=== PATIENT | male | born 1965 | race Caucasian/White ===

== ENCOUNTER 2018-09-24 10:34 | Day surgery (SDC) | payer BC ==
[~2018-09-24] VITALS: Ht 167.6 cm; Wt 110.7 kg
[~2018-09-24 10:34] MED LIST: CHLO125TA PO; FENO145T13 PO; FISH7.5C PO; LOTR10CA PO; PRAV40TA2 PO
[2018-09-24] MEDS ORDERED: NS 1,000 ML IV ONE (11:15)
[2018-09-24] MEDS ORDERED: LIDOCAINE 2% INJ 100 MG/5 ML SDV (FOR ANES.) As Ordered ONE (11:50)
[2018-09-24] MEDS ORDERED: PROPOFOL 200 MG/20 ML VIAL As Ordered ONE (11:50)
--- NOTE | 2018-09-24 12:17 | ROOR ---
Patient Name: Josiah Martinez Procedure Date: 09/24/2018 11:51 AM Date of : 1965 Age: 52 Room: [facility] Gender: Male Note Status: Finalized Procedure: Colonoscopy Indications: Screening for colorectal malignant neoplasm Providers: Alan SORIA MD Referring MD: JOSIAH HUNTER MD Requesting Provider: Medicines: Monitored Anesthesia Care Complications: No immediate complications. Procedure: Pre-Anesthesia Assessment: - The heart rate, respiratory rate, oxygen saturations, blood pressure, adequacy of pulmonary ventilation, and response to care were monitored throughout the procedure. The Colonoscope was introduced through the anus and advanced to the cecum, identified by appendiceal orifice and ileocecal valve. The colonoscopy was performed without difficulty. The patient tolerated the procedure well. The quality of the bowel preparation was good. Findings: The perianal and digital rectal examinations were normal. Two sessile polyps were found in the sigmoid colon and splenic flexure. The polyps were 4 to 5 mm in size. These polyps were removed with a cold snare. Resection and retrieval were complete. Multiple small and large-mouthed diverticula were found in the sigmoid colon. The exam was otherwise without abnormality on direct and retroflexion views. Impression: - Two 4 to 5 mm polyps in the sigmoid colon and at the splenic flexure, removed with a cold snare. Resected and retrieved. - Moderate diverticulosis in the sigmoid colon. - The examination was otherwise normal on direct and retroflexion views. Recommendation: - Await pathology results. - Telephone endoscopist for pathology results in 2 weeks. - If the pathology report reveals adenomatous tissue, then repeat the colonoscopy for surveillance in 5 years. Alan Soria MD Alan SORIA MD 09/24/2018 12:17:08 PM This report has been signed electronically. Number of Addenda: 0 Note Initiated On: 09/24/2018 11:51 AM Estimated Blood Loss: Estimated blood loss: none.
[2018-09-24 12:40] VITALS: BP 157/94
== END 2018-09-24 12:57 | disposition home or self-care (01) ==
LOC: M OPP 10:34
PROVIDERS: ATTEND Internal Medicine Gastroenterology
DX: Z12.11 Encounter for screening for malignant neoplasm of colon (principal); K62.5 Hemorrhage of anus and rectum; K57.30 Diverticulosis of large intestine without perforation or abscess without bleeding; Z79.899 Other long term (current) drug therapy

== ENCOUNTER → 2022-04-04 | Outpatient (CLI) | payer BC ==
[~2022-04-04] MED LIST changes: -FENO145T13 PO; +FENO145T7 PO; +FISH10005 PO; -FISH7.5C PO
[2022-04-04 11:40] LABS: BLOOD UREA NITROGEN 18 MG/DL (7-18); CREATININE FOR GFR 0.85 MG/DL (0.70-1.30); GLOMERULAR FILTRATION RATE > 60.0 (>56)
== END ==
LOC: M PLALAB 08:45
PROVIDERS: ATTEND Orthopaedic Surgery
DX: M70.61 Trochanteric bursitis, right hip (principal)

== ENCOUNTER → 2022-05-23 | Outpatient (CLI) | payer BC ==
[2022-05-23 11:46] LABS: HEMOGLOBIN A1c 6.9 %
[2022-05-23 11:50] LABS: ALBUMIN 4.1 GM/DL (3.2-5.2); ALT/SGPT 33 U/L (12-78); BILIRUBIN,TOTAL 0.7 MG/DL (0.2-1.0); BLOOD UREA NITROGEN 20 MG/DL (7-18); CALCIUM LEVEL 9.2 MG/DL (8.5-10.1); CARBON DIOXIDE LEVEL 27 MEQ/L (21-32); CHLORIDE LEVEL 103 MEQ/L (98-107); CHOLESTEROL LEVEL 226 MG/DL (<200); CHOLESTEROL RISK RATIO 5.255 (<5); CREATININE FOR GFR 0.99 MG/DL (0.70-1.30); GLOMERULAR FILTRATION RATE > 60.0 (>56); GLUCOSE, FASTING 142 MG/DL (70-100); HDL CHOLESTEROL 43 MG/DL (>40); NON-HDL-C 183 MG/DL; SODIUM LEVEL 138 MEQ/L (136-145); TOTAL PROTEIN 7.2 GM/DL (6.4-8.2); TRIGLYCERIDES LEVEL 419 MG/DL (<150)
== END ==
LOC: M PLALAB 08:21
PROVIDERS: ATTEND Internal Medicine
DX: E78.2 Mixed hyperlipidemia (principal); R73.01 Impaired fasting glucose; I10 Essential (primary) hypertension

== ENCOUNTER → 2022-08-30 | Outpatient (CLI) | payer BC ==
[2022-08-30 10:50] LABS: ALBUMIN 4.1 G/DL (3.2-5.2); ALKALINE PHOSPHATASE 87 U/L (46-116); ALT/SGPT 23 U/L (7.0-40); AST/SGOT 19 U/L (<34); BILIRUBIN,TOTAL 0.7 MG/DL (0.3-1.2); BLOOD UREA NITROGEN 19 MG/DL (9-23); CALCIUM LEVEL 9.4 MG/DL (8.5-10.1); CARBON DIOXIDE LEVEL 25 MMOL/L (20-31); CHLORIDE LEVEL 104 MMOL/L (98-107); CHOLESTEROL LEVEL 195 MG/DL (<200); CHOLESTEROL RISK RATIO 4.45 (<5); CREATININE FOR GFR 0.84 MG/DL (0.70-1.30); GLOMERULAR FILTRATION RATE > 60.0 (>56); GLUCOSE, FASTING 144 MG/DL (60-100); HDL CHOLESTEROL 43.8 MG/DL (>40); NON-HDL-C 151 MG/DL; POTASSIUM SERUM 3.9 MMOL/L (3.5-5.1); SODIUM LEVEL 139 MMOL/L (136-145); TOTAL PROTEIN 6.8 G/DL (5.7-8.2); TRIGLYCERIDES LEVEL 301 MG/DL (<150)
== END ==
LOC: M PLALAB 08:08
PROVIDERS: ATTEND Internal Medicine
DX: E11.9 Type 2 diabetes mellitus without complications (principal)

== ENCOUNTER → 2022-11-27 | Outpatient (CLI) | payer BC ==
[2022-11-27 11:03] LABS: ALBUMIN 3.9 G/DL (3.2-5.2); ALKALINE PHOSPHATASE 92 U/L (46-116); ALT/SGPT 13 U/L (7.0-40); AST/SGOT 17 U/L (<34); BILIRUBIN,TOTAL 0.6 MG/DL (0.3-1.2); BLOOD UREA NITROGEN 26 MG/DL (9-23); CALCIUM LEVEL 9.1 MG/DL (8.5-10.1); CARBON DIOXIDE LEVEL 24 MMOL/L (20-31); CHLORIDE LEVEL 102 MMOL/L (98-107); CHOLESTEROL LEVEL 226 MG/DL (<200); CHOLESTEROL RISK RATIO 5.14 (<5); GLOMERULAR FILTRATION RATE > 60.0 (>56); GLUCOSE, FASTING 139 MG/DL (60-100); HDL CHOLESTEROL 43.9 MG/DL (>40); NON-HDL-C 182.1 MG/DL; POTASSIUM SERUM 4.3 MMOL/L (3.5-5.1); SODIUM LEVEL 135 MMOL/L (136-145); TOTAL PROTEIN 6.8 G/DL (5.7-8.2); TRIGLYCERIDES LEVEL 508 MG/DL (<150)
[2022-11-27 11:07] LABS: HEMOGLOBIN A1c 7.1 % (4.0-6.0)
== END ==
LOC: M PLALAB 08:16
PROVIDERS: ATTEND Internal Medicine
DX: E11.9 Type 2 diabetes mellitus without complications (principal)

== ENCOUNTER → 2023-03-01 | Outpatient (CLI) | payer BC ==
[2023-03-01 11:36] LABS: HEMOGLOBIN A1c 7.7 % (4.0-6.0)
[2023-03-01 11:46] LABS: ALBUMIN 4.1 G/DL (3.2-5.2); ALKALINE PHOSPHATASE 91 U/L (46-116); ALT/SGPT 24 U/L (7.0-40); AST/SGOT 16 U/L (<34); BILIRUBIN,TOTAL 0.8 MG/DL (0.3-1.2); BLOOD UREA NITROGEN 21 MG/DL (9-23); CALCIUM LEVEL 9.2 MG/DL (8.5-10.1); CARBON DIOXIDE LEVEL 23 MMOL/L (20-31); CHLORIDE LEVEL 103 MMOL/L (98-107); CHOLESTEROL LEVEL 218 MG/DL (<200); CREATININE FOR GFR 0.82 MG/DL (0.70-1.30); GLOMERULAR FILTRATION RATE > 60.0 (>56); GLUCOSE, FASTING 150 MG/DL (60-100); HDL CHOLESTEROL 40.3 MG/DL (>40); NON-HDL-C 177.7 MG/DL; POTASSIUM SERUM 3.8 MMOL/L (3.5-5.1); SODIUM LEVEL 137 MMOL/L (136-145); TOTAL PROTEIN 6.8 G/DL (5.7-8.2); TRIGLYCERIDES LEVEL 637 MG/DL (<150)
== END ==
LOC: M PLALAB 08:38
PROVIDERS: ATTEND Internal Medicine
DX: E11.9 Type 2 diabetes mellitus without complications (principal); E78.2 Mixed hyperlipidemia; I10 Essential (primary) hypertension

== ENCOUNTER → 2023-06-01 | Outpatient (CLI) | payer BC ==
[2023-06-01 11:02] LABS: ALKALINE PHOSPHATASE 74 U/L (46-116); ALT/SGPT 29 U/L (7.0-40); AST/SGOT 23 U/L (<34); BILIRUBIN,TOTAL 0.8 MG/DL (0.3-1.2); BLOOD UREA NITROGEN 18 MG/DL (9-23); CALCIUM LEVEL 9.3 MG/DL (8.5-10.1); CARBON DIOXIDE LEVEL 26 MMOL/L (20-31); CHLORIDE LEVEL 103 MMOL/L (98-107); CHOLESTEROL LEVEL 215 MG/DL (<200); CHOLESTEROL RISK RATIO 4.86 (<5); CREATININE FOR GFR 0.86 MG/DL (0.70-1.30); GLOMERULAR FILTRATION RATE > 60.0 (>56); GLUCOSE, FASTING 140 MG/DL (60-100); HDL CHOLESTEROL 44.2 MG/DL (>40); LDL CHOLESTEROL 104.2 MG/DL (<100); NON-HDL-C 170.8 MG/DL; POTASSIUM SERUM 3.6 MMOL/L (3.5-5.1); SODIUM LEVEL 140 MMOL/L (136-145); TOTAL PROTEIN 6.9 G/DL (5.7-8.2); TRIGLYCERIDES LEVEL 333 MG/DL (<150)
[2023-06-01 11:15] LABS: HEMOGLOBIN A1c 6.9 % (4.0-6.0)
== END ==
LOC: M PLALAB 08:24
PROVIDERS: ATTEND Internal Medicine
DX: E11.9 Type 2 diabetes mellitus without complications (principal)

== ENCOUNTER → 2023-09-03 | Outpatient (CLI) | payer BC ==
[2023-09-03 14:04] LABS: ALBUMIN 4.2 G/DL (3.2-5.2); ALKALINE PHOSPHATASE 73 U/L (46-116); ALT/SGPT 22 U/L (7.0-40); AST/SGOT 17 U/L (<34); BILIRUBIN,TOTAL 0.7 MG/DL (0.3-1.2); BLOOD UREA NITROGEN 23 MG/DL (9-23); CALCIUM LEVEL 9.3 MG/DL (8.5-10.1); CARBON DIOXIDE LEVEL 26 MMOL/L (20-31); CHLORIDE LEVEL 105 MMOL/L (98-107); CHOLESTEROL LEVEL 214 MG/DL (<200); CHOLESTEROL RISK RATIO 5.24 (<5); GLOMERULAR FILTRATION RATE > 60.0 (>56); GLUCOSE, FASTING 133 MG/DL (60-100); HDL CHOLESTEROL 40.8 MG/DL (>40); LDL CHOLESTEROL 113.2 MG/DL (<100); NON-HDL-C 173.2 MG/DL; POTASSIUM SERUM 3.7 MMOL/L (3.5-5.1); SODIUM LEVEL 137 MMOL/L (136-145); TRIGLYCERIDES LEVEL 300 MG/DL (<150)
[2023-09-03 14:06] LABS: HEMOGLOBIN A1c 6.7 % (4.0-6.0)
== END ==
LOC: M PLALAB 08:48
PROVIDERS: ATTEND Internal Medicine
DX: E11.9 Type 2 diabetes mellitus without complications (principal); E78.2 Mixed hyperlipidemia; I10 Essential (primary) hypertension

== ENCOUNTER → 2023-12-04 | Outpatient (CLI) | payer BC ==
[2023-12-04 11:03] LABS: ALBUMIN 4.1 G/DL (3.2-5.2); ALKALINE PHOSPHATASE 96 U/L (46-116); ALT/SGPT 28 U/L (7.0-40); AST/SGOT 23 U/L (<34); BILIRUBIN,TOTAL 0.8 MG/DL (0.3-1.2); BLOOD UREA NITROGEN 23 MG/DL (9-23); CALCIUM LEVEL 9.4 MG/DL (8.5-10.1); CARBON DIOXIDE LEVEL 24 MMOL/L (20-31); CHLORIDE LEVEL 101 MMOL/L (98-107); CHOLESTEROL LEVEL 212 MG/DL (<200); CREATININE FOR GFR 0.86 MG/DL (0.70-1.30); GLOMERULAR FILTRATION RATE > 60.0 (>56); GLUCOSE, FASTING 142 MG/DL (60-100); HDL CHOLESTEROL 40.7 MG/DL (>40); LDL CHOLESTEROL 93.3 MG/DL (<100); NON-HDL-C 171.3 MG/DL; POTASSIUM SERUM 3.8 MMOL/L (3.5-5.1); SODIUM LEVEL 135 MMOL/L (136-145); TOTAL PROTEIN 6.9 G/DL (5.7-8.2); TRIGLYCERIDES LEVEL 390 MG/DL (<150)
== END ==
LOC: M PLALAB 08:25
PROVIDERS: ATTEND Internal Medicine
DX: E11.9 Type 2 diabetes mellitus without complications (principal); E78.2 Mixed hyperlipidemia; I10 Essential (primary) hypertension

== ENCOUNTER → 2024-03-19 | Outpatient (CLI) | payer BC ==
[2024-03-19 10:17] LABS: ALBUMIN 3.9 G/DL (3.2-5.2); ALKALINE PHOSPHATASE 78 U/L (46-116); ALT/SGPT 24 U/L (7.0-40); AST/SGOT 16 U/L (<34); BILIRUBIN,TOTAL 0.9 MG/DL (0.3-1.2); BLOOD UREA NITROGEN 15 MG/DL (9-23); CALCIUM LEVEL 9.7 MG/DL (8.5-10.1); CARBON DIOXIDE LEVEL 27 MMOL/L (20-31); CHLORIDE LEVEL 107 MMOL/L (98-107); CHOLESTEROL LEVEL 200 MG/DL (<200); CREATININE FOR GFR 0.79 MG/DL (0.70-1.30); GLOMERULAR FILTRATION RATE > 60.0 (>56); GLUCOSE, FASTING 131 MG/DL (60-100); HDL CHOLESTEROL 45.4 MG/DL (>40); LDL CHOLESTEROL 111.2 MG/DL (<100); NON-HDL-C 154.6 MG/DL; SODIUM LEVEL 140 MMOL/L (136-145); TOTAL PROTEIN 6.8 G/DL (5.7-8.2); TRIGLYCERIDES LEVEL 217 MG/DL (<150)
[2024-03-19 10:31] LABS: HEMOGLOBIN A1c 6.8 % (4.0-6.0)
== END ==
LOC: M PLALAB 08:15
PROVIDERS: ATTEND Internal Medicine
DX: E11.9 Type 2 diabetes mellitus without complications (principal); E78.2 Mixed hyperlipidemia; I10 Essential (primary) hypertension